=== PATIENT | female | born 1960 | race Caucasian/White ===

== ENCOUNTER → 2017-12-16 | Outpatient (CLI) | payer OTHER | LOC: PT 13:00 → EDSTATUS 13:00 → PT 13:05 | DX: Z01.818 Encounter for other preprocedural examination (principal); M17.12 Unilateral primary osteoarthritis, left knee ==

== ENCOUNTER 2018-01-31 13:00 | Outpatient (RCR) | payer OTHER | END 2018-01-31 13:30 | disposition home or self-care (01) | LOC: PT 13:00 | DX: Z47.1 Aftercare following joint replacement surgery (principal); Z96.652 Presence of left artificial knee joint | CPT/HCPCS: G8978-GP; G8979-GP ==

== ENCOUNTER 2021-09-20 12:56 | Outpatient (RCR) | payer BC | END 2021-10-17 | disposition home or self-care (01) | LOC: PT | DX: M25.511 Pain in right shoulder (principal) ==

== ENCOUNTER 2021-10-24 09:30 | Outpatient (RCR) | payer BC | END 2021-11-16 | disposition still patient (30) | LOC: PT | DX: M25.511 Pain in right shoulder (principal) ==

== ENCOUNTER 2021-11-22 08:52 | Outpatient (RCR) | payer BC | END 2021-12-17 | disposition home or self-care (01) | LOC: PT | DX: M25.511 Pain in right shoulder (principal) ==

== ENCOUNTER 2021-12-19 07:49 | Outpatient (RCR) | payer BC | END 2022-01-17 | disposition home or self-care (01) | LOC: PT | DX: M25.511 Pain in right shoulder (principal) ==

== ENCOUNTER 2022-05-22 08:00 | Outpatient (RCR) | payer BC | END 2022-06-19 | disposition home or self-care (01) | LOC: PT | DX: M25.511 Pain in right shoulder (principal) ==

== ENCOUNTER 2022-07-18 07:49 | Outpatient (RCR) | payer BC | END 2022-08-17 | disposition home or self-care (01) | LOC: PT | DX: M25.511 Pain in right shoulder (principal) ==

== ENCOUNTER → 2023-03-11 | Outpatient (CLI) | payer BC | LOC: PT 09:02 | DX: M17.11 Unilateral primary osteoarthritis, right knee (principal) ==

== ENCOUNTER 2023-03-18 08:00 | Outpatient (RCR) | payer BC | END 2023-03-19 23:59 | LOC: PT 08:00 | DX: Z96.641 Presence of right artificial hip joint (principal) ==

== ENCOUNTER 2023-04-19 08:00 | Outpatient (RCR) | payer BC | END 2023-05-19 | disposition home or self-care (01) | LOC: PT | DX: M25.511 Pain in right shoulder (principal); Z96.651 Presence of right artificial knee joint ==